=== PATIENT | male | born 1945 | race Caucasian/White ===

== ENCOUNTER 2016-05-14 08:41 | Outpatient (CLI) | payer MEDICARE, OTHER | END 2016-05-14 08:42 | disposition home or self-care (01) | DX: Z00.00 Encounter for general adult medical examination without abnormal findings (principal); E11.9 Type 2 diabetes mellitus without complications ==

== ENCOUNTER 2016-12-02 08:21 | Outpatient (CLI) | payer MEDICARE, OTHER ==
[2016-12-02 14:07] LABS: BUN - BLOOD UREA NITROGEN 20 mg/dL (6-20); CALCIUM 9.2 mg/dL (8.5-10.3); CARBON DIOXIDE - CO2 28 mmol/L (21-32); CHLORIDE 102 mmol/L (101-111); CHOL/HDL RATIO 3.7 (<5.0); CHOLESTEROL 127 mg/dL; CREATININE 0.9 mg/dL (0.6-1.2); GFR - MDRD 83 (>89); GLUCOSE 119 mg/dL (70-100); HDL CHOLESTEROL 34 mg/dL; LDL/HDL RATIO 2.3 (<3.6); POTASSIUM 4.3 mmol/L (3.5-5.0); SODIUM 135 mmol/L (135-145); TRIGLYCERIDES 82 mg/dL; URIC ACID 5.6 mg/dL (2.6-7.2); VLDL CHOLESTEROL 16 mg/dL
[2016-12-02 14:53] LABS: HEMOGLOBIN A1C 0.72 g/dL
== END 2016-12-02 08:22 | disposition home or self-care (01) ==
LOC: LAB.F 08:21
PROVIDERS: ATTEND Internal Medicine
DX: E11.9 Type 2 diabetes mellitus without complications (principal); M10.00 Idiopathic gout, unspecified site; E78.5 Hyperlipidemia, unspecified; M17.10 Unilateral primary osteoarthritis, unspecified knee
CPT/HCPCS: 80048; 80061; 82043; 82570; 83036; 84550

== ENCOUNTER 2016-12-09 11:40 | Outpatient (CLI) | payer MEDICARE, OTHER ==
--- NOTE | 2016-12-09 14:22 | XRAY Report ---
THREE-VIEW RIGHT KNEE: 12/09/2016 CLINICAL INDICATION: Pain. FINDINGS: AP, lateral, sunrise views of the right knee demonstrate mild osteoarthritis. There is no evidence of fracture. No effusion is present. IMPRESSION: MILD OSTEOARTHRITIS. JOB #: [id number] EXT JOB #:[id number]
== END 2016-12-09 11:41 | disposition home or self-care (01) ==
LOC: DI.S 11:40
PROVIDERS: ATTEND Internal Medicine
DX: M17.11 Unilateral primary osteoarthritis, right knee (principal)

== ENCOUNTER 2017-01-28 15:37 | Outpatient (CLI) | payer MEDICARE, OTHER ==
--- NOTE | 2017-01-29 10:41 | MRI Report ---
EXAM: RIGHT KNEE MRI WITHOUT CONTRAST EXAM DATE: 01/28/2017 04:19 PM. CLINICAL HISTORY: Right knee pain for 3 months. COMPARISON: Right knee radiography from 12/09/2016. TECHNIQUE: Multiplanar, multisequence T1-weighted and fluid-sensitive sequences of the knee without c ontrast. Other: None. FINDINGS: Bones and articular cartilage: Minimal subchondral marrow edema at the medial aspect of the medial ti bial plateau. Tiny marginal osteophytes at the medial femoral condyle and the patella. Focal grade 3- 4 chondromalacia and subchondral marrow edema at the lateral patellar facet. No patellar subluxation. Medial Meniscus: There is a flap tear at the inner third of the posterior horn. A small portion of th e posterior horn is displaced laterally within the posterior lateral aspect of the medial joint deanna rtment (sagittal image 10 and coronal image 20). Lateral Meniscus: The lateral meniscus is intact. Cruciate Ligaments: The anterior and posterior cruciate ligaments are intact. Collateral Ligaments: The medial collateral and lateral collateral ligamentous structures are intact. Tendons: The quadriceps, patellar, semimembranosus, and popliteus tendons are unremarkable. Musculature: No edema or fatty atrophy. Other: No effusion. No popliteal cyst. There are multiple small subcentimeter loose bodies at the pos terior medial and posterior lateral aspects of the medial joint compartment. There are 2, small, subc entimeter loose bodies within a synovial cyst adjacent to the popliteus muscle-tendon unit (sagittal images 20 and 21 and axial images 6-8). The medial and lateral retinacula are intact. There is edema within the superolateral aspect of the infrapatellar fat pad. Subcutaneous fat is unremarkable. IMPRESSION: 1. 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 2. Flap tear at the posterior horn medial meniscus. 3. Multiple small loose bodies at the posterior medial and posterior lateral aspects of the medial bryon int compartment and within a synovial cyst adjacent to the popliteus muscle-tendon unit. 4. Edema within the superolateral aspect of the infrapatellar fat pad which may be due to focal fat i mpingement. No patellar subluxation. [facility] MUSCULOSKELETAL RADIOLOGY SECTION Referring Provider Line: [phone] SITE ID: [id number]
== END 2017-01-28 15:38 | disposition home or self-care (01) ==
LOC: DI 15:37
PROVIDERS: ATTEND Internal Medicine
DX: M22.41 Chondromalacia patellae, right knee (principal); S83.241A Other tear of medial meniscus, current injury, right knee, initial encounter; M23.41 Loose body in knee, right knee; M71.38 Other bursal cyst, other site; R60.0 Localized edema

== ENCOUNTER 2017-05-20 07:58 | Outpatient (CLI) | payer MEDICARE, OTHER ==
[2017-05-20 10:36] LABS: HB2 TOTAL 17.6 g/dL; HEMOGLOBIN A1C 0.7 g/dL; HEMOGLOBIN A1C % 5.8 % (4.6-6.2)
== END 2017-05-20 07:59 | disposition home or self-care (01) ==
LOC: LAB.F 07:58
PROVIDERS: ATTEND Internal Medicine
DX: E11.9 Type 2 diabetes mellitus without complications (principal); M10.00 Idiopathic gout, unspecified site; E78.5 Hyperlipidemia, unspecified; M25.561 Pain in right knee
CPT/HCPCS: 36415; 83036

== ENCOUNTER 2017-11-27 13:08 | Outpatient (CLI) | payer MEDICARE ==
[2017-11-27 18:26] LABS: BUN - BLOOD UREA NITROGEN 15 mg/dL (6-20); CALCIUM 9.1 mg/dL (8.5-10.3); CARBON DIOXIDE - CO2 28 mmol/L (21-32); CHLORIDE 102 mmol/L (101-111); CHOL/HDL RATIO 3.6 (<5.0); CHOLESTEROL 132 mg/dL; CREATININE 0.9 mg/dL (0.6-1.2); GFR - MDRD 83 (>89); GLUCOSE 91 mg/dL (70-100); HDL CHOLESTEROL 37 mg/dL; LDL CHOLESTEROL,CALCULATED 78 mg/dL; LDL/HDL RATIO 2.1 (<3.6); SODIUM 138 mmol/L (135-145); VLDL CHOLESTEROL 17 mg/dL
[2017-11-27 18:50] LABS: HB2 TOTAL 16.8 g/dL; HEMOGLOBIN A1C 0.63 g/dL; HEMOGLOBIN A1C % 5.6 % (4.6-6.2)
[2017-11-27 18:52] LABS: CREATININE,URINE 53.3 mg/dL
[2017-11-27 22:37] LABS: MICROALBUMIN,URINE < 0.3 mg/dL (0-300.0)
== END 2017-11-27 13:09 | disposition home or self-care (01) ==
LOC: LAB.F 13:08
PROVIDERS: ATTEND Internal Medicine
DX: M23.8X1 Other internal derangements of right knee (principal); E11.9 Type 2 diabetes mellitus without complications; E78.5 Hyperlipidemia, unspecified; M10.00 Idiopathic gout, unspecified site; M25.561 Pain in right knee
CPT/HCPCS: 36415; 80048; 80061; 82043; 82570; 83036; 83721

== ENCOUNTER 2018-03-16 07:41 | Outpatient (CLI) | payer MEDICARE ==
[2018-03-16 13:37] LABS: HB2 TOTAL 16.4 g/dL; HEMOGLOBIN A1C 0.61 g/dL; HEMOGLOBIN A1C % 5.6 % (4.6-6.2)
[2018-03-17 12:12] LABS: HEPATITIS C ANTIBODY NON-REACTIVE (NON-REACTIVE)
== END 2018-03-16 07:42 | disposition home or self-care (01) ==
LOC: LAB.F 07:41
PROVIDERS: ATTEND Internal Medicine
DX: E11.9 Type 2 diabetes mellitus without complications (principal); E78.5 Hyperlipidemia, unspecified; L98.9 Disorder of the skin and subcutaneous tissue, unspecified; Z11.59 Encounter for screening for other viral diseases; Z00.00 Encounter for general adult medical examination without abnormal findings
CPT/HCPCS: 36415; 83036; 86803

== ENCOUNTER 2018-07-04 10:40 | Outpatient (CLI) | payer MEDICARE, OTHER ==
--- NOTE | 2018-07-06 00:40 | XRAY Report ---
Reason: PAIN IN RIGHT FOOT Procedure Date: 07/04/2018 Accession Number: [id number] / [id number] Procedure: XR - Foot 3 View RT CPT Code: FULL RESULT: EXAM: RIGHT FOOT RADIOGRAPHY. EXAM DATE: 07/04/2018 10:59 AM. CLINICAL HISTORY: Pain in right foot. History of gout/arthritis at base of great toe for the last 12 years or so. Not a high level of uric acid so the cause is unknown. COMPARISON: None. TECHNIQUE: 3 views. FINDINGS: No evidence for acute fracture. Small bone island seen at the first proximal phalanx distal aspect. Severe first metatarsophalangeal osteoarthritis with joint space narrowing, sclerosis, osteophytes and metatarsal head subchondral cystic change. Minimal first interphalangeal osteoarthritis. Calcaneal bone spurs. Dorsal distal talus bone spur. IMPRESSION: 1. No acute bone findings are seen. 2. Severe first metatarsophalangeal osteoarthritis. See above. [facility]
== END 2018-07-04 10:41 | disposition home or self-care (01) ==
LOC: DI 10:40
PROVIDERS: ATTEND Internal Medicine
DX: M19.071 Primary osteoarthritis, right ankle and foot (principal)

== ENCOUNTER 2018-12-03 07:55 | Outpatient (CLI) | payer MEDICARE, OTHER ==
[2018-12-03 10:29] LABS: CREATININE,URINE 145.8 mg/dL; MICROALBUM/CREATININE RATIO,UR 4.1 ug/mg (<30.0); MICROALBUMIN,URINE 0.6 mg/dL (0-300.0)
[2018-12-03 10:30] LABS: BUN - BLOOD UREA NITROGEN 18 mg/dL (6-20); CALCIUM 9.1 mg/dL (8.5-10.3); CARBON DIOXIDE - CO2 28 mmol/L (21-32); CHLORIDE 102 mmol/L (101-111); CHOL/HDL RATIO 3.3 (<5.0); CHOLESTEROL 121 mg/dL; CREATININE 1.1 mg/dL (0.6-1.2); GFR - MDRD 66 (>89); GLUCOSE 118 mg/dL (70-100); HDL CHOLESTEROL 37 mg/dL; LDL CHOLESTEROL,CALCULATED 72 mg/dL; LDL/HDL RATIO 1.9 (<3.6); SODIUM 138 mmol/L (135-145); VLDL CHOLESTEROL 12 mg/dL
[2018-12-03 10:38] LABS: HB2 TOTAL 16.3 g/dL; HEMOGLOBIN A1C 0.65 g/dL; HEMOGLOBIN A1C % 5.8 % (4.6-6.2)
== END 2018-12-03 07:56 | disposition home or self-care (01) ==
LOC: LAB.S 07:55
PROVIDERS: ATTEND Internal Medicine
DX: M19.90 Unspecified osteoarthritis, unspecified site (principal); E11.9 Type 2 diabetes mellitus without complications; R03.0 Elevated blood-pressure reading, without diagnosis of hypertension; E78.5 Hyperlipidemia, unspecified
CPT/HCPCS: 36415; 80048; 80061; 82043; 82570; 83036; 83721

== ENCOUNTER 2019-12-27 10:44 | Outpatient (CLI) | payer MEDICARE, OTHER ==
[2019-12-27 15:40] LABS: BUN - BLOOD UREA NITROGEN 17 mg/dL (6-20); CALCIUM 9.1 mg/dL (8.5-10.3); CARBON DIOXIDE - CO2 27 mmol/L (21-32); CHLORIDE 104 mmol/L (101-111); CHOL/HDL RATIO 6.2 (<5.0); CHOLESTEROL 237 mg/dL; CREATININE 0.9 mg/dL (0.6-1.2); GLUCOSE 110 mg/dL (70-100); HDL CHOLESTEROL 38 mg/dL; LDL CHOLESTEROL,CALCULATED 166 mg/dL; LDL/HDL RATIO 4.4 (<3.6); SODIUM 138 mmol/L (135-145); VLDL CHOLESTEROL 33 mg/dL
[2019-12-27 15:45] LABS: CREATININE,URINE 89.2 mg/dL; MICROALBUM/CREATININE RATIO,UR 2.2 ug/mg (<30.0); MICROALBUMIN,URINE 0.2 mg/dL (0-300.0)
== END 2019-12-27 10:45 | disposition home or self-care (01) ==
LOC: LAB.S 10:44
PROVIDERS: ATTEND Internal Medicine
DX: Z00.00 Encounter for general adult medical examination without abnormal findings (principal); E78.5 Hyperlipidemia, unspecified; E11.9 Type 2 diabetes mellitus without complications; R03.0 Elevated blood-pressure reading, without diagnosis of hypertension; M54.6 Pain in thoracic spine; K42.9 Umbilical hernia without obstruction or gangrene
CPT/HCPCS: 36415; 80048; 80061; 82043; 82570; 83036; 83721

== ENCOUNTER 2020-01-26 09:25 | Outpatient (CLI) | payer MEDICARE, OTHER ==
[2020-01-26 16:28] LABS: CALCIUM 9.8 mg/dL (8.5-10.3)
== END 2020-01-26 09:26 | disposition home or self-care (01) ==
LOC: LAB.S 09:25
PROVIDERS: ATTEND Internal Medicine
DX: I10 Essential (primary) hypertension (principal)
CPT/HCPCS: 36415; 80048

== ENCOUNTER 2020-02-01 15:52 | Outpatient (CLI) | payer MEDICARE, OTHER ==
--- NOTE | 2020-02-01 16:15 | XRAY Report ---
PROCEDURE: Chest 2 View X-Ray INDICATIONS: DYSPENA ON EXERTION TECHNIQUE: 2 view(s) of the chest. COMPARISON: None. FINDINGS: Surgical changes and devices: None. Lungs and pleura: No pleural effusions or pneumothorax. Lungs are clear. Mediastinum: Mediastinal contours are normal. Heart size is normal. Bones and chest wall: No suspicious bony abnormalities. Soft tissues appear unremarkable. IMPRESSION: No acute process. Reviewed by: Blanquita Ruggiero MD on 02/01/2020 4:14 PM [facility] Approved by: Blanquita Ruggiero MD on 02/01/2020 4:14 PM [facility] Station ID: [id number]
== END 2020-02-01 15:53 | disposition home or self-care (01) ==
LOC: DI.S 15:52
PROVIDERS: ATTEND Internal Medicine
DX: R06.09 Other forms of dyspnea (principal)

== ENCOUNTER 2020-04-17 09:06 | Outpatient (CLI) | payer MEDICARE, OTHER ==
[2020-04-17 14:37] LABS: CALCIUM 10.1 mg/dL (8.5-10.3); POTASSIUM 4.6 mmol/L (3.5-5.0)
[2020-04-17 15:05] LABS: ESTIMATED AVERAGE GLUCOSE 126 mg/dL (70-100)
== END 2020-04-17 09:07 | disposition home or self-care (01) ==
LOC: LAB.S 09:06
PROVIDERS: ATTEND Internal Medicine
DX: E11.9 Type 2 diabetes mellitus without complications (principal); I10 Essential (primary) hypertension
CPT/HCPCS: 36415; 80048; 83036

== ENCOUNTER 2020-05-30 08:39 | Outpatient (CLI) | payer MEDICARE, OTHER ==
[2020-05-30 15:51] LABS: CHOL/HDL RATIO 4.6 (<5.0); CHOLESTEROL 173 mg/dL; HDL CHOLESTEROL 38 mg/dL; LDL CHOLESTEROL,CALCULATED 91 mg/dL; LDL/HDL RATIO 2.4 (<3.6); TRIGLYCERIDES 219 mg/dL; VLDL CHOLESTEROL 44 mg/dL
== END 2020-05-30 08:40 | disposition home or self-care (01) ==
LOC: LAB.S 08:39
PROVIDERS: ATTEND Internal Medicine
DX: E78.5 Hyperlipidemia, unspecified (principal)
CPT/HCPCS: 36415; 80061; 83721

== ENCOUNTER 2021-01-23 07:41 | Outpatient (CLI) | payer MEDICARE, OTHER ==
[2021-01-23 16:03] LABS: CREATININE,URINE 43.3 mg/dL
[2021-01-23 16:08] LABS: MICROALBUMIN,URINE < 0.2 mg/dL (0-300.0)
[2021-01-23 16:33] LABS: BUN - BLOOD UREA NITROGEN 20 mg/dL (6-20); CALCIUM 9.1 mg/dL (8.5-10.3); CARBON DIOXIDE - CO2 25 mmol/L (21-32); CHLORIDE 100 mmol/L (101-111); CHOL/HDL RATIO 5.3 (<5.0); CHOLESTEROL 165 mg/dL; CREATININE 0.9 mg/dL (0.6-1.2); GFR - MDRD 82 (>89); GLUCOSE 131 mg/dL (70-100); HDL CHOLESTEROL 31 mg/dL; LDL CHOLESTEROL,CALCULATED 98 mg/dL; LDL/HDL RATIO 3.2 (<3.6); SODIUM 134 mmol/L (135-145); TRIGLYCERIDES 181 mg/dL; VLDL CHOLESTEROL 36 mg/dL
[2021-01-23 21:13] LABS: ESTIMATED AVERAGE GLUCOSE 148 mg/dL (70-100); HEMOGLOBIN A1c% 6.8 % (4.27-6.07)
== END 2021-01-23 07:42 | disposition home or self-care (01) ==
LOC: LAB.S 07:41
PROVIDERS: ATTEND Internal Medicine
DX: E11.9 Type 2 diabetes mellitus without complications (principal); E78.5 Hyperlipidemia, unspecified; I10 Essential (primary) hypertension
CPT/HCPCS: 36415; 80048; 80061; 82043; 82570; 83036; 83721

== ENCOUNTER 2021-02-21 12:28 | Outpatient (CLI) | payer MEDICARE, OTHER | END 2021-02-21 12:29 | disposition home or self-care (01) | LOC: RT 12:28 | PROVIDERS: ATTEND Internal Medicine | DX: R06.09 Other forms of dyspnea (principal) | CPT/HCPCS: 94010 ==

== ENCOUNTER 2021-07-12 07:32 | Outpatient (CLI) | payer MEDICARE, OTHER ==
[2021-07-12 14:34] LABS: ESTIMATED AVERAGE GLUCOSE 131 mg/dL (70-100); HEMOGLOBIN A1c% 6.2 % (4.27-6.07)
== END 2021-07-12 07:33 | disposition home or self-care (01) ==
LOC: LAB.S 07:32
PROVIDERS: ATTEND Internal Medicine
DX: E11.9 Type 2 diabetes mellitus without complications (principal)
CPT/HCPCS: 36415; 83036

== ENCOUNTER 2021-08-10 11:14 | Outpatient (CLI) | payer MEDICARE, OTHER | END 2021-08-10 11:15 | disposition home or self-care (01) | LOC: RT 11:14 | PROVIDERS: ATTEND Internal Medicine | DX: R06.02 Shortness of breath (principal) | CPT/HCPCS: 93005 ==

== ENCOUNTER 2022-01-15 07:01 | Outpatient (CLI) | payer MEDICARE, OTHER ==
[2022-01-15 15:16] LABS: BUN - BLOOD UREA NITROGEN 20 mg/dL (6-20); CALCIUM 9.5 mg/dL (8.5-10.3); CARBON DIOXIDE - CO2 28 mmol/L (21-32); CHLORIDE 103 mmol/L (101-111); CHOL/HDL RATIO 3.8 (<5.0); CHOLESTEROL 159 mg/dL; CREATININE 0.9 mg/dL (0.6-1.2); GFR - MDRD 82 (>89); GLUCOSE 118 mg/dL (70-100); HDL CHOLESTEROL 42 mg/dL; LDL CHOLESTEROL,CALCULATED 97 mg/dL; LDL/HDL RATIO 2.3 (<3.6); POTASSIUM 4.4 mmol/L (3.5-5.0); SODIUM 138 mmol/L (135-145); TRIGLYCERIDES 99 mg/dL; URIC ACID 5.9 mg/dL (2.6-7.2); VLDL CHOLESTEROL 20 mg/dL
[2022-01-15 15:48] LABS: CREATININE,URINE 31.1 mg/dL
[2022-01-15 15:53] LABS: MICROALBUMIN,URINE < 0.2 mg/dL (0-300.0)
[2022-01-15 20:53] LABS: ESTIMATED AVERAGE GLUCOSE 123 mg/dL (70-100); HEMOGLOBIN A1c% 5.9 % (4.27-6.07)
== END 2022-01-15 07:02 | disposition home or self-care (01) ==
LOC: LAB.S 07:01
PROVIDERS: ATTEND Internal Medicine
DX: I10 Essential (primary) hypertension (principal); E11.9 Type 2 diabetes mellitus without complications; E78.5 Hyperlipidemia, unspecified; M10.9 Gout, unspecified
CPT/HCPCS: 36415; 80048; 80061; 82043; 82570; 83036; 83721; 84550

== ENCOUNTER 2022-07-12 13:10 | Outpatient (CLI) | payer MEDICARE ==
[2022-07-12 21:11] LABS: ESTIMATED AVERAGE GLUCOSE 128 mg/dL (70-100); HEMOGLOBIN A1c% 6.1 % (4.27-6.07)
== END 2022-07-12 13:11 | disposition home or self-care (01) ==
LOC: LAB.S 13:10
PROVIDERS: ATTEND Internal Medicine
DX: E11.9 Type 2 diabetes mellitus without complications (principal)
CPT/HCPCS: 36415; 83036

== ENCOUNTER 2022-12-26 07:02 | Outpatient (CLI) | payer MEDICARE ==
[2022-12-26 15:21] LABS: BUN - BLOOD UREA NITROGEN 13 mg/dL (6-20); CALCIUM 9.4 mg/dL (8.5-10.3); CARBON DIOXIDE - CO2 28 mmol/L (21-32); CHLORIDE 102 mmol/L (101-111); CHOLESTEROL 113 mg/dL; CREATININE 0.9 mg/dL (0.6-1.3); CREATININE,URINE 39.1 mg/dL; GFR - MDRD 82 (>89); GLUCOSE 101 mg/dL (74-104); HDL CHOLESTEROL 38 mg/dL; POTASSIUM 4.2 mmol/L (3.5-4.5); SODIUM 138 mmol/L (135-145)
[2022-12-26 15:36] LABS: MICROALBUMIN,URINE < 0.7 mg/dL
[2022-12-26 16:28] LABS: LDL CHOLESTEROL,CALCULATED 48 mg/dL; LDL/HDL RATIO 1.3 (<3.6); TRIGLYCERIDES 135 mg/dL (48-352); VLDL CHOLESTEROL 27 mg/dL
[2022-12-26 20:48] LABS: ESTIMATED AVERAGE GLUCOSE 131 mg/dL (70-100); HEMOGLOBIN A1c% 6.2 % (4.27-6.07)
== END 2022-12-26 07:03 | disposition home or self-care (01) ==
LOC: LAB.S 07:02
PROVIDERS: ATTEND Internal Medicine
DX: I10 Essential (primary) hypertension (principal); E11.9 Type 2 diabetes mellitus without complications; E78.5 Hyperlipidemia, unspecified
CPT/HCPCS: 36415; 80048; 80061; 82043; 82570; 83036; 83721

== ENCOUNTER 2023-07-25 08:04 | Outpatient (CLI) | payer MEDICARE ==
[2023-07-25 20:21] LABS: ESTIMATED AVERAGE GLUCOSE 128 mg/dL (70-100); HEMOGLOBIN A1c% 6.1 % (4.27-6.07)
== END 2023-07-25 08:05 | disposition home or self-care (01) ==
LOC: LAB.S 08:04
PROVIDERS: ATTEND Internal Medicine
DX: E11.9 Type 2 diabetes mellitus without complications (principal)
CPT/HCPCS: 36415; 83036